=== PATIENT | female | born 1955 | race Caucasian/White ===

== ENCOUNTER → 2017-02-11 | Outpatient (CLI) | payer OTHER ==
[~2017-02-11] MED LIST: MULTIPLE VITAM1 EAC1 PO; PRILOSEC20 MG PO; TYLENOL EXTRA500 MG PO; VITAMIN D31000 UNI2 PO
== END | disposition home or self-care (01) ==
LOC: CDC 14:24
DX: Z01.810 Encounter for preprocedural cardiovascular examination (principal); C50.911 Malignant neoplasm of unspecified site of right female breast
CPT/HCPCS: 93000

== ENCOUNTER 2017-02-17 05:47 | Inpatient (IN) | payer OTHER ==
[~2017-02-17] VITALS: Ht 154.9 cm; Wt 96.0 kg
[2017-02-17] MEDS ORDERED: XANAX0.5 MG PO (06:26)
[2017-02-17] MEDS ORDERED: TRANSDERM-SCOP1 EACH TD (06:27)
[2017-02-17 06:32] VITALS: BP 155/70
[2017-02-17 16:02] VITALS: BP 145/63
[2017-02-17 20:31] VITALS: BP 117/56
[2017-02-18 00:10] VITALS: BP 137/66
[2017-02-18 07:25] VITALS: BP 136/66
[2017-02-18 11:05] VITALS: BP 128/61
== END 2017-02-18 13:17 | disposition home or self-care (01) | DRG 582 ==
LOC: SDC → ENRESERV 13:13 → 2EASTP 13:17 → 2SOUTH 13:17 → ENRESERV 13:24 → SDC 14:12 → 2EASTP 15:59 → ENPENDDIS 02-18 → 2EASTP 02-18 13:17
PROC: 0HHT0NZ Insertion of Tissue Expander into Right Breast, Open Approach (ICD-10-PCS; principal; 2017-02-17)
PROC: 0HTT0ZZ Resection of Right Breast, Open Approach (ICD-10-PCS; principal; 2017-02-17)
DX: D05.11 Intraductal carcinoma in situ of right breast (principal); Z68.41 Body mass index [BMI] 40.0-44.9, adult; E78.5 Hyperlipidemia, unspecified; E66.9 Obesity, unspecified; L98.9 Disorder of the skin and subcutaneous tissue, unspecified; N81.11 Cystocele, midline; L40.9 Psoriasis, unspecified; R60.0 Localized edema; R23.4 Changes in skin texture; M19.049 Primary osteoarthritis, unspecified hand; M19.079 Primary osteoarthritis, unspecified ankle and foot; Z92.3 Personal history of irradiation; Z80.49 Family history of malignant neoplasm of other genital organs; Z85.3 Personal history of malignant neoplasm of breast; Z17.0 Estrogen receptor positive status [ER+]; Z90.49 Acquired absence of other specified parts of digestive tract; Z82.49 Family history of ischemic heart disease and other diseases of the circulatory system; Z82.0 Family history of epilepsy and other diseases of the nervous system
CPT/HCPCS: 88309; 97110 GP; 97161 GP; J0131; J0690; J1100; J1170; J1885; J2250; J2405; J3010; S0020

== ENCOUNTER 2017-03-12 09:47 | Day surgery (SDC) | payer OTHER ==
[~2017-03-12] VITALS: Ht 154.9 cm; Wt 92.4 kg
[~2017-03-12 09:47] MED LIST changes: +TRANSDERM-SCOP1 EACH TD; +XANAX0.5 MG PO
[2017-03-12 10:29] VITALS: BP 131/58
[2017-03-12 15:25] VITALS: BP 129/60
[2017-03-12 16:30] VITALS: BP 120/58
[2017-03-12 18:05] VITALS: BP 138/64
== END 2017-03-12 18:18 | disposition home or self-care (01) ==
LOC: SDC 09:47
PROC: 0HPT0NZ Removal of Tissue Expander from Right Breast, Open Approach (ICD-10-PCS; principal; 2017-03-12)
DX: T81.32XA Disruption of internal operation (surgical) wound, not elsewhere classified, initial encounter (principal); T85.898A Other specified complication of other internal prosthetic devices, implants and grafts, initial encounter; Z85.3 Personal history of malignant neoplasm of breast; Z92.3 Personal history of irradiation; E78.5 Hyperlipidemia, unspecified; E66.9 Obesity, unspecified; Z68.38 Body mass index [BMI] 38.0-38.9, adult; L40.9 Psoriasis, unspecified; M19.90 Unspecified osteoarthritis, unspecified site; K21.9 Gastro-esophageal reflux disease without esophagitis; Z80.49 Family history of malignant neoplasm of other genital organs; Z82.49 Family history of ischemic heart disease and other diseases of the circulatory system; Z82.0 Family history of epilepsy and other diseases of the nervous system; Y83.1 Surgical operation with implant of artificial internal device as the cause of abnormal reaction of the patient, or of later complication, without mention of misadventure at the time of the procedure
CPT/HCPCS: 87070; 87075; 87077; 87186; 87205; J0171; J0330; J0690; J1100; J1170; J1885; J2405; J2710; J3010

== ENCOUNTER 2017-05-11 07:32 | Day surgery (SDC) | payer OTHER ==
[~2017-05-11] VITALS: Ht 153.7 cm; Wt 92.5 kg
[~2017-05-11 07:32] MED LIST changes: +CYANOCOBALAM1000 MCG PO; +VITAMIN C1000 MG PO
== END 2017-05-11 10:30 | disposition home or self-care (01) ==
LOC: CATH 07:32
DX: I87.8 Other specified disorders of veins (principal); C50.911 Malignant neoplasm of unspecified site of right female breast
CPT/HCPCS: C1751; C1769; C1894; J0690; J1200; J1644; J2250; S0020